=== PATIENT | male | born 1950 | race Caucasian/White ===

== ENCOUNTER 2019-05-07 15:14 | Inpatient (IN) | payer MEDICARE, MEDICAID ==
[~2019-05-07] VITALS: Ht 172.7 cm; Wt 121.8 kg
[~2019-05-07 15:14] MED LIST: B-121000 MCG PO; BACTRIM DS 8001 TAB PO; COREG 3.123.125 MG/T PO; COREG 6.256.25 MG/TA PO; COUMADIN 5MG5 MG/TAB PO; DAZIDOX10 MG PO; DOXYCYCLINE 10100 MG PO; EXALGO8 MG PO; GLUCOPHAGE1000 MG PO; INDOCIN 25MG CA25 MG PO; KLOR-CON M2020 MEQ PO; LASIX 40MG TABL40 MG PO; LYRICA 150MG C150 MG PO; MAGNESIUM500 MG PO; MULTIPLE VITAMI1 TAB PO; PERCOCET 325 MG1 TA3 PO; PERCOCET 325 MG1 TAB PO; PHARMASSURE ZIN50 MG PO; PRINIVIL40 MG PO; PROBIOTIC FORMU1 CAP PO; PROTONIX 40MG T40 MG PO; VITAMIN C500 MG PO; VITAMIN D31000 IU PO; XANAX .25M0.25 MG/TA PO; ZINC50 MG PO; ZOCOR 40MG40 MG PO
[2019-05-07 16:19] LABS: BASO # 0.1 (0.0-0.2); BASO % 0.7 % (0.0-2.0); EOS # 0.3 (0.0-0.7); EOS % 2.4 % (0-4.0); GRAN # 9.1 (1.4-6.5); LYMPH # 0.7 (1.2-3.4); LYMPH % 6.4 % (20.0-51.0); MEAN CELL VOLUME 72 fl (80.0-100.0); MEAN CORPUSCULAR HGB CONC 30 g/dl (33.0-37.0); MEAN PLATELET VOLUME 10.3 fl (7.4-10.4); MONO % 8.9 % (1.7-9.3); PLATELET COUNT 318 K/mm3 (130-400); RED BLOOD COUNT 4.11 M/mm3 (4.20-5.60); REDCELL DISTRIBUTION WIDTH-CV 20.1 % (11.5-14.5)
[2019-05-07 16:20] LABS: HEMATOCRIT 29.7 % (42.0-52.0); HEMOGLOBIN 8.8 g/dl (13.5-18.0); MEAN CORPUSCULAR HEMOGLOBIN 21 pg (27.0-31.0)
[2019-05-07] MEDS ORDERED: COREG 3.123.125 MG/T PO (16:24)
[2019-05-07 16:35] LABS: PROTHROMBIN TIME 140.7 SECONDS (9.7-12.8)
[2019-05-07 16:37] LABS: INR 11.2 (0.8-3.0)
[2019-05-07 16:43] LABS: ALBUMIN 3.3 gm/dL (3.5-5.0); BILIRUBIN,TOTAL 1.4 mg/dL (0.0-1.0); CALCIUM 8.6 mg/dL (8.4-10.2); CREATININE, serum 1.68 (0.66-1.25); TOTAL PROTEIN 6.7 gm/dL (6.4-8.2)
[2019-05-07 16:54] LABS: TROPONIN-I 0.024 ng/mL (0.000-0.035)
[2019-05-07 16:58] LABS: POTASSIUM 6.1 mmol/L (3.4-5.0)
--- NOTE | 2019-05-07 19:12 | NUR ---
Vancomycin Initial Dosing Pharmacy Note Ordering provider: Patrica Caurso W., MD Indication/duration: CELLULITIS Relevant comorbidities: OBESE/BM/CHF/ LABS: SCR 1.68/CRCL~50/WBC 11.2 Recommendation: VANCO 2GM Q12H Loading dose: 2 grams Maintenance dose: 2 grams every 12 hours Trough goal: 10-15 ug/mL
[2019-05-07 19:56] VITALS: BP 97/59; PULSE 70; TEMP 97.4
[2019-05-07 20:04] VITALS: BP 97/59; PULSE 70; TEMP 97.4
--- NOTE | 2019-05-07 20:35 | NUR ---
Patient assessed at this time. Alert and oriented x 4, and able to make needs known. Reported level 8 pain to BLE. Given PRN Roxicodone for pain as requested. Peripheral IV to right AC flushed. Site is without redness, warmth, swelling, and pain. Denies having SOB and dyspnea. LS CTA in upper lobes, diminished in lower lobes. Respirations are even and unlabored. Denies cough. HRR. Telemetry in place. Capillary refill is less than 3 seconds. Non-tenting skin turgor. BSAx4. 3+ edema BLE. Excoriation to right chest fold, abdominal, and groin folds. 3 stage 2 ulcers to bottom. LLE wrapped, dressing CDI. RLE open to air. Multiple sores. Bright red. Weeping. Sore to right plantar foot. Patient voices no questions, needs, or concerns at this time. Oriented to room. Call light is within reach.
[2019-05-07 22:57] LABS: C-REACTIVE PROTEIN 5.6 mg/dL (0.0-0.9); CALCIUM 8.5 mg/dL (8.4-10.2); CREATININE, serum 1.84 (0.66-1.25); POTASSIUM 5.4 mmol/L (3.4-5.0)
[2019-05-07] MEDS ORDERED: ZYLOPRIM 100MG100 MG PO (22:57)
[2019-05-07 23:05] LABS: TROPONIN-I 6 HR POST INITIAL 0.021 ng/mL (0.000-0.034)
--- NOTE | 2019-05-08 00:15 | NUR ---
Patient complaining of pain to BLE. Given PRN Roxicodone as requested for pain at this time.
[2019-05-08 01:37] VITALS: BP 110/47; PULSE 70; TEMP 97.9
[2019-05-08 05:59] VITALS: BP 119/48; PULSE 70; TEMP 97.7
--- NOTE | 2019-05-08 07:14 | NUR ---
Vancomycin running per orders. Reported pain earlier, but declined PRN Roxicodone. Encouraged to let staff know if he needs pain medication before pain gets to be too much. Voices understanding. Ortho consult called this morning, and ortho has seen patient. BLE are open to air at this time. Voices no questions, needs, or concerns. Report given to day shift.
[2019-05-08 07:22] LABS: BASO # 0.1 (0.0-0.2); BASO % 0.8 % (0.0-2.0); EOS # 0.3 (0.0-0.7); EOS % 2.4 % (0-4.0); GRAN # 8.3 (1.4-6.5); GRAN % 78.7 % (42.2-75.2); LYMPH # 0.8 (1.2-3.4); LYMPH % 7.3 % (20.0-51.0); MEAN CELL VOLUME 72 fl (80.0-100.0); MEAN CORPUSCULAR HGB CONC 30 g/dl (33.0-37.0); MONO # 1.1 (0.1-0.6); PLATELET COUNT 298 K/mm3 (130-400); RED BLOOD COUNT 3.83 M/mm3 (4.20-5.60)
[2019-05-08 07:23] LABS: HEMATOCRIT 27.4 % (42.0-52.0); HEMOGLOBIN 8.3 g/dl (13.5-18.0); MEAN CORPUSCULAR HEMOGLOBIN 22 pg (27.0-31.0)
[2019-05-08 07:24] VITALS: BP 122/67; PULSE 75; TEMP 98
[2019-05-08 07:33] LABS: INR 4.4 (0.8-3.0)
[2019-05-08 07:47] LABS: PROTHROMBIN TIME 53.6 SECONDS (9.7-12.8)
[2019-05-08 08:41] LABS: ALBUMIN 2.9 gm/dL (3.5-5.0); BILIRUBIN,TOTAL 1.3 mg/dL (0.0-1.0); CALCIUM 8.2 mg/dL (8.4-10.2); CREATININE, serum 1.75 (0.66-1.25); POTASSIUM 5.1 mmol/L (3.4-5.0); TOTAL PROTEIN 6.1 gm/dL (6.4-8.2)
--- NOTE | 2019-05-08 10:11 | NUR ---
Initial visit; Patient thanked Leather Coater for looking in on him, offering prayer and keeping him in her prayers. Leather Coater will follow up.
--- NOTE | 2019-05-08 12:55 | NUR ---
SW met with the patient to discuss a discharge plan. The patient lives at [facility] in an accessible apartment. The patient has [facility] providing nursing, PT/OT 3x a week and [facility] providing cleaning and laundry services 2x a weeks. The patient has a walker, cane and a CPAP receving those supplies from [facility]. The patient's PCP is Katelynn Mark APRN and patient receives medications from [facility] in . The patient does not have advanced directive in the EMR but reports they are complete and designate his son, Jorge A Hurst. The patient plans to return home continuing the services with [facility] and [facility] . The patient's son will provide transportation. well services operator will continue to follow to ensure a safe discharge.
[2019-05-08 13:50] VITALS: BP 99/41; PULSE 67; TEMP 97.9
[2019-05-08 17:00] VITALS: BP 103/56; PULSE 66; TEMP 97.4
--- NOTE | 2019-05-08 20:00 | NUR ---
CRISTINO BOOTS TO BILATERAL LE APPLIED ORDERED BY WOUND CARE. NO COMPLICATIONS. IV VANCOMYCIN INFUSING THROUGH LEFT AC PERIPHEAL IV SITE ORDERED.
[2019-05-08 20:17] VITALS: BP 96/43; PULSE 80; TEMP 97.3
--- NOTE | 2019-05-08 20:25 | NUR ---
Telmetry called and stated that patient was having multiple runs of what looked with A-fib RVR or V-Tach. Called RT and placed order for STAT EKG. Had QUAL FIELD MANAGER and nurse check on patient. Patient asymptomatic. VSS. Denied pain and discomfort. EKG results with no change from previous EKG. Notified [facility]. Orders placed for STAT labs.
[2019-05-08 21:22] LABS: CALCIUM 8.3 mg/dL (8.4-10.2); CREATININE, serum 1.63 (0.66-1.25); MAGNESIUM 1.9 mg/dL (1.6-2.3); POTASSIUM 4.7 mmol/L (3.4-5.0)
--- NOTE | 2019-05-08 22:00 | NUR ---
Patient assessed at this time. Reports pain, but declines PRN narcotic at this time. Voices no questions, needs, or concerns. Received IV Lasix. Using bedside urinal. Urine clear and yellow. CRISTINO boots to BLE. Resting in bed with call light within reach.
--- NOTE | 2019-05-08 23:40 | NUR ---
Received PRN Roxicodone for level 8 pain to BLE at this time.
[2019-05-09] VITALS (7 sets, daily range): BP systolic 92–114; BP diastolic 35–69; PULSE 42–78; TEMP 97.4–98.3
--- NOTE | 2019-05-09 04:31 | NUR ---
Received PRN Roxicodone as requested for pain to BLE at this time.
--- NOTE | 2019-05-09 05:42 | NUR ---
CRISTINO boot remain intact to BLE. Resting in bed with call light within reach.
[2019-05-09 06:44] LABS: MEAN CELL VOLUME 72 fl (80.0-100.0); MEAN CORPUSCULAR HGB CONC 30 g/dl (33.0-37.0); MEAN PLATELET VOLUME 10.2 fl (7.4-10.4); PLATELET COUNT 282 K/mm3 (130-400); RED BLOOD COUNT 3.83 M/mm3 (4.20-5.60); REDCELL DISTRIBUTION WIDTH-CV 20.1 % (11.5-14.5)
[2019-05-09 06:46] LABS: HEMATOCRIT 27.4 % (42.0-52.0); HEMOGLOBIN 8.2 g/dl (13.5-18.0); MEAN CORPUSCULAR HEMOGLOBIN 21 pg (27.0-31.0)
[2019-05-09 06:47] LABS: INR 2.6 (0.8-3.0); PROTHROMBIN TIME 30.8 SECONDS (9.7-12.8)
--- NOTE | 2019-05-09 07:00 | NUR ---
Bedside shift report received from PRO Mays. PT in bed resting at side of bed. Denies needs, will continue to monitor.
[2019-05-09 07:12] LABS: CALCIUM 8.1 mg/dL (8.4-10.2); CREATININE, serum 1.5 (0.66-1.25); MAGNESIUM 1.8 mg/dL (1.6-2.3); POTASSIUM 4.1 mmol/L (3.4-5.0)
--- NOTE | 2019-05-09 07:41 | NUR ---
Report given to day shift nurse.
[2019-05-09 09:05] LABS: BAND 6 % (0-10); BASOPHIL 1 % (0-2); EOSINOPHIL 1 % (0-4); HYPOCHROMIA 3+; LYMPHOCYTE 11 % (20.0-51.0); METAMYELOCYTE 2 % (0-0); MYELOCYTE 1 % (0-0); NEUTROPHILS 74 % (42.0-75.2); PLATELET ESTIMATE NORMAL (NORMAL)
[2019-05-09 09:06] LABS: MICROCYTOSIS 1+; OVALOCYTES 2+
--- NOTE | 2019-05-09 09:29 | NUR ---
assessment charted. INT to L a/c. BLE are weepy, draining onto floor, pt states this is normal for him and is chronic. Unna boot in places bilaterally. INT to L A/C. eating breakfast at side of bed. waiting for wound care to visit or jj finley for recs. Will continue to monitor.
--- NOTE | 2019-05-09 13:04 | NUR ---
MALDONADO faxed updates to Mari at [facility]. MALDONADO will continue to monitor.
--- NOTE | 2019-05-09 17:43 | NUR ---
Pt doing well, has been in chair resting off and on all day d/t poor sleep last night. Denies needs, will give bedside shift report to nightshift nurse who will resume care.
--- NOTE | 2019-05-09 19:30 | NUR ---
Pt resting in chair. No distress noted. Pt reports that dressings are saturated. Dressings to bilateral lower extremities changed by Maddie RN and Jael RN. Pt has multiple open wounds to BLE and feet and toes. BLE are weeping. Dressings removed. Uniboot, Kerlix and Lyle wraps placed bilaterally. Well tolerated by patient. Repsirations are even and unlabored. Lungs are clear to ausculation, bilateral bases are diminished. Heart rhythm is irregular- v paced on telemetry. 4+ edema noted to BLE, 2+ edema to BUE. It was reported that patient has stageII ulcerations x3 on his saccrum. These were not visualized at time of assessment due to patient refusing to stand. Pt is voiding in urinal- vishal, clear output. He reports that he has not been drinking much water. Pt c/o pain in BLE and "everywhere". He also states that he has some "alfonzo horses" periodically. Pt denies needs at this time.
[2019-05-10] VITALS (7 sets, daily range): BP systolic 11–111; BP diastolic 32–53; PULSE 55–69; TEMP 97.6–99
--- NOTE | 2019-05-10 00:30 | NUR ---
Pt back in bed. c/o pain to BLE. PRN pain medication was given. No distress noted. Will continue to monitor.
--- NOTE | 2019-05-10 06:00 | NUR ---
Pt up to chair this AM. He was able to get some sleep after returning to bed last night and taking dose of PRN pain medication for his BLE pain. His blood pressure was decreased at 0400 vitals while sleeping. Pt was not in distress. Blood pressures have been decreased at times during this admission.
--- NOTE | 2019-05-10 06:22 | NUR ---
Rechecked patients blood pressure sitting in chair- 111/50.
--- NOTE | 2019-05-10 06:58 | NUR ---
Report given to Dayna MAST. Pt sleeping in chair. No distress noted.
[2019-05-10 09:15] LABS: MEAN CELL VOLUME 72 fl (80.0-100.0); MEAN CORPUSCULAR HGB CONC 29 g/dl (33.0-37.0); MEAN PLATELET VOLUME 9.8 fl (7.4-10.4); PLATELET COUNT 263 K/mm3 (130-400); RED BLOOD COUNT 4.36 M/mm3 (4.20-5.60); REDCELL DISTRIBUTION WIDTH-CV 20.3 % (11.5-14.5)
[2019-05-10 09:27] LABS: INR 2.9 (0.8-3.0); PROTHROMBIN TIME 35.4 SECONDS (9.7-12.8)
[2019-05-10 09:29] LABS: CALCIUM 8.6 mg/dL (8.4-10.2); CREATININE, serum 1.34 (0.66-1.25); MAGNESIUM 1.9 mg/dL (1.6-2.3); POTASSIUM 4.3 mmol/L (3.4-5.0)
[2019-05-10 10:01] LABS: HEMATOCRIT 31.4 % (42.0-52.0); HEMOGLOBIN 9.2 g/dl (13.5-18.0); MEAN CORPUSCULAR HEMOGLOBIN 21 pg (27.0-31.0)
[2019-05-10 13:11] LABS: BAND 1 % (0-10); LYMPHOCYTE 7 % (20.0-51.0); MYELOCYTE 1 % (0-0); NEUTROPHILS 85 % (42.0-75.2)
[2019-05-10 13:12] LABS: HYPOCHROMIA 3+; MICROCYTOSIS 1+; PLATELET ESTIMATE NORMAL (NORMAL)
[2019-05-10 13:13] LABS: ANISOCYTOSIS 1+
--- NOTE | 2019-05-10 20:30 | NUR ---
Initial shift assessment done-Tele on, sitting up in chair- no requests- was just medicated at shift change- states has pain all over due to fibromyalgia, understands need to measure urine output-- has urinal at bedside
[2019-05-11] VITALS (7 sets, daily range): BP systolic 86–118; BP diastolic 32–56; PULSE 59–73; TEMP 97.7–98.5
--- NOTE | 2019-05-11 04:45 | NUR ---
Did redress left leg with new kerlix wrap and leigh wrap due moderate amount drainage- also cleaned the wounds to low buttocks and put on mepilex- has 4 open wounds, left side with 3 wounds 2 small dime sized amd one quarter sized, right side has 1 quarter sized open area
[2019-05-11 06:48] LABS: BASO # 0.1 (0.0-0.2); BASO % 0.9 % (0.0-2.0); EOS # 0.4 (0.0-0.7); EOS % 4.1 % (0-4.0); GRAN # 6.4 (1.4-6.5); GRAN % 72.6 % (42.2-75.2); LYMPH # 0.9 (1.2-3.4); MEAN CELL VOLUME 72 fl (80.0-100.0); MEAN CORPUSCULAR HGB CONC 30 g/dl (33.0-37.0); MEAN PLATELET VOLUME 10.3 fl (7.4-10.4); MONO % 11.4 % (1.7-9.3); PLATELET COUNT 293 K/mm3 (130-400); RED BLOOD COUNT 4.03 M/mm3 (4.20-5.60); REDCELL DISTRIBUTION WIDTH-CV 20.5 % (11.5-14.5)
[2019-05-11 06:57] LABS: ALBUMIN 3.1 gm/dL (3.5-5.0); BILIRUBIN,TOTAL 1.2 mg/dL (0.0-1.0); CALCIUM 8.4 mg/dL (8.4-10.2); CREATININE, serum 1.25 (0.66-1.25); TOTAL PROTEIN 6.4 gm/dL (6.4-8.2)
[2019-05-11 06:59] LABS: INR 3.9 (0.8-3.0)
[2019-05-11 07:04] LABS: PROTHROMBIN TIME 47.8 SECONDS (9.7-12.8)
[2019-05-11 07:19] LABS: HEMATOCRIT 29.1 % (42.0-52.0); HEMOGLOBIN 8.6 g/dl (13.5-18.0); MEAN CORPUSCULAR HEMOGLOBIN 21 pg (27.0-31.0)
--- NOTE | 2019-05-11 09:04 | NUR ---
Pt assessment complete. Pt is sitting in the recliner, he is A/O x4. His breathing is even and unlabored on RA. Pt denies SOB. No pain at this time, received pain medication on previous shift. Pt denies N/V. Eating without difficulty. POC discussed with patient who verbalizes understanding. Vanc running through peripheral LAC. No needs at this time. Call light within reach.
[2019-05-11] MEDS ORDERED: COUMADIN 2MG2 MG/TAB PO (13:43)
[2019-05-11] MEDS ORDERED: LASIX 40MG TABL40 MG PO (13:43)
[2019-05-11] MEDS ORDERED: LEVAQUIN 5500 MG/TA1 PO (13:45)
--- NOTE | 2019-05-11 17:48 | NUR ---
Pt sat up in recliner through the day. Intermittent pain "all over" reported. PRN pain medications administered. Pt's bilateral legs wheepy, dressings changed. Pt reporting in order to have a ride to go home tomorrow he has to be out of facility by 9am, this was relayed to Dr. Caruso. No needs at this time. Call light within reach.
--- NOTE | 2019-05-11 20:00 | NUR ---
Received report from PRO Garcia. Assessment complete. Pt sitting in chair watching TV. C/O pain to BLE, rate 7/10, PRN pain meds administered. Dressing in place to BLE. Tele monitor in place, leads checked. INT to LAC intact, flushed, dressing CDI.Needs met. Walker within reach. Call light within reach. Meds administered as ordered. Pt placed on contact precautions, pt educated and verbalized understanding.
--- NOTE | 2019-05-11 22:45 | NUR ---
BLE FELICITY bandage and kerlix wrap soaked. Removed and changed kerlix wrap and felicity bandage to BLE. Remi placed under pt feet. Needs attended too. Call light within reach.
--- NOTE | 2019-05-12 01:59 | NUR ---
10 hours post first dose of Augmentin, pt c/o itchiness to bilateral arms and back of neck and head, urticaria noted to rt arm. pt w/o SOB. PRN benadryl administered. Will monitor pt. Call light within reach.
[2019-05-12 04:28] VITALS: BP 121/54; PULSE 68; TEMP 97.8
--- NOTE | 2019-05-12 06:20 | NUR ---
DRESSING TO BLE SOAKED THROUGH AND CHANGED USING FELICITY BANDAGE AND KERLIX WRAP. C/O PAIN TO BLE RATE 7-8/10, PRN PAIN MEDS GIVEN WITH STATED RELIEF. pT VERBALIZED RELIEF OF ITCHINESS TO BUA AND HEAD. CALL LIGHT WITHIN REACH. NEEDS ATTENDED TOO.
--- NOTE | 2019-05-12 07:10 | NUR ---
Report given to PRO Garcia.
--- NOTE | 2019-05-12 08:33 | NUR ---
Pt assessment complete. Pt is up ambulating in the room without issues. He is A/O x4. His breathing is even and unlabored on RA. Pt currently denies pain. No N/V. Pt anxious to discharge by 9am, TING Hammer notified and aware. POC discussed with patient who verbalizes understanding. No needs at this time. Isolation precautions in place. Dressings CDI.
[2019-05-12 08:44] LABS: BASO # 0.1 (0.0-0.2); BASO % 0.7 % (0.0-2.0); EOS # 0.4 (0.0-0.7); EOS % 4.3 % (0-4.0); GRAN # 6.6 (1.4-6.5); GRAN % 70.5 % (42.2-75.2); LYMPH # 1.1 (1.2-3.4); LYMPH % 11.3 % (20.0-51.0); MEAN CELL VOLUME 72 fl (80.0-100.0); MEAN CORPUSCULAR HGB CONC 30 g/dl (33.0-37.0); MEAN PLATELET VOLUME 9.9 fl (7.4-10.4); MONO # 1.1 (0.1-0.6); MONO % 12.2 % (1.7-9.3); PLATELET COUNT 312 K/mm3 (130-400); REDCELL DISTRIBUTION WIDTH-CV 20.8 % (11.5-14.5)
[2019-05-12 08:46] LABS: HEMATOCRIT 31.7 % (42.0-52.0); HEMOGLOBIN 9.4 g/dl (13.5-18.0); MEAN CORPUSCULAR HEMOGLOBIN 21 pg (27.0-31.0)
[2019-05-12 08:54] LABS: ALBUMIN 3.4 gm/dL (3.5-5.0); BILIRUBIN,TOTAL 1.2 mg/dL (0.0-1.0); CALCIUM 8.6 mg/dL (8.4-10.2); CREATININE, serum 1.39 (0.66-1.25); POTASSIUM 4.6 mmol/L (3.4-5.0)
[2019-05-12] MEDS ORDERED: AMOXICILLIN 8751 TAB PO (08:55)
[2019-05-12 08:56] LABS: INR 5.4 (0.8-3.0)
--- NOTE | 2019-05-12 09:26 | NUR ---
Discharge instructions and paperwork reviewed with patient. All questions answered at this time. INT to LAC dc'd, catheter intact. Pt wheeled out at this time.
--- NOTE | 2019-05-12 10:02 | NUR ---
The patient discharged back home today, 05/12, with home health services for longterm/woundcare/PT/OT through [facility] and private duty services through [facility]. MALDONADO attempted to notify Mari at [facility]. SW left her a voicemail and faxed over discharge orders. No additional needs at this time.
== END 2019-05-12 09:28 | disposition home health service (06) | DRG 682 ==
LOC: COL.ER 15:14 → MEDICAL 17:05 → EDBEDREQ 18:00 → MEDICAL 19:00
PROVIDERS: Family Medicine; Nurse Practitioner Family; ADMIT Student in an Organized Health Care Education/Training Program
DX: N17.9 Acute kidney failure, unspecified (principal); I50.23 Acute on chronic systolic (congestive) heart failure; I13.0 Hypertensive heart and chronic kidney disease with heart failure and stage 1 through stage 4 chronic kidney disease, or unspecified chronic kidney disease; L03.115 Cellulitis of right lower limb; M86.9 Osteomyelitis, unspecified; E11.69 Type 2 diabetes mellitus with other specified complication; E11.621 Type 2 diabetes mellitus with foot ulcer; I25.10 Atherosclerotic heart disease of native coronary artery without angina pectoris; I48.91 Unspecified atrial fibrillation; E87.5 Hyperkalemia; I08.3 Combined rheumatic disorders of mitral, aortic and tricuspid valves; R79.1 Abnormal coagulation profile; M19.90 Unspecified osteoarthritis, unspecified site; I87.8 Other specified disorders of veins; L89.309 Pressure ulcer of unspecified buttock, unspecified stage; L97.519 Non-pressure chronic ulcer of other part of right foot with unspecified severity; E11.628 Type 2 diabetes mellitus with other skin complications; B96.89 Other specified bacterial agents as the cause of diseases classified elsewhere; D63.1 Anemia in chronic kidney disease; N18.9 Chronic kidney disease, unspecified; G47.30 Sleep apnea, unspecified; E11.42 Type 2 diabetes mellitus with diabetic polyneuropathy; K21.9 Gastro-esophageal reflux disease without esophagitis; E11.36 Type 2 diabetes mellitus with diabetic cataract; H26.9 Unspecified cataract; Z79.01 Long term (current) use of anticoagulants; Z95.1 Presence of aortocoronary bypass graft; Z95.2 Presence of prosthetic heart valve; Z95.0 Presence of cardiac pacemaker; Z88.0 Allergy status to penicillin; Z88.1 Allergy status to other antibiotic agents; Z79.891 Long term (current) use of opiate analgesic; Z86.73 Personal history of transient ischemic attack (TIA), and cerebral infarction without residual deficits
CPT/HCPCS: 99223-AI; 99232-AI; 99233-AI; 99239; A6456; J1815; J1940; J3370; J7040